=== PATIENT | male | born 1980 | race Caucasian/White ===

== ENCOUNTER → 2017-02-24 | Outpatient (CLI) | payer OTHER | LOC: FIMAGING 12:41 | PROVIDERS: ATTEND Internal Medicine | DX: Z13.6 Encounter for screening for cardiovascular disorders (principal); Z82.49 Family history of ischemic heart disease and other diseases of the circulatory system ==

== ENCOUNTER → 2018-01-05 | Outpatient (CLI) | payer OTHER | LOC: FIMAGING 07:50 | PROVIDERS: ATTEND Internal Medicine | DX: Z82.49 Family history of ischemic heart disease and other diseases of the circulatory system (principal) ==

== ENCOUNTER → 2018-12-06 | Outpatient (CLI) | payer OTHER | LOC: FLAB 10:55 | PROVIDERS: ATTEND Internal Medicine | DX: R05 Cough (principal); R07.9 Chest pain, unspecified; R91.8 Other nonspecific abnormal finding of lung field ==

== ENCOUNTER → 2018-12-15 | Outpatient (CLI) | payer OTHER | LOC: FIMAGING 08:23 | PROVIDERS: ATTEND Internal Medicine | DX: Z13.828 Encounter for screening for other musculoskeletal disorder (principal) ==